=== PATIENT | male | born 1950 | race Caucasian/White ===

== ENCOUNTER 2017-08-04 23:53 | Emergency (ER) | payer OTHER ==
[~2017-08-04] VITALS: Ht 177.8 cm; Wt 88.5 kg
[2017-08-05 00:42] LABS: Basophils # (auto) 0.2 uL; Basophils % (auto) 1.1 % (0.0-2.0); Eosinophils # (auto) 0.1 uL; Eosinophils % (auto) 0.5 % (0.0-7.0); Hemoglobin 13.8 g/dL (13.5-17.5); Lymphocytes # (auto) 0.8 uL; Lymphocytes % (auto) 4.3 % (10.0-50.0); Mean Corpuscular Hgb Conc. 33.5 g/dL (32.0-36.0); Mean Corpuscular Volume 89.4 fL (80.0-100.0); Monocytes # (auto) 1.2 uL; Monocytes % (auto) 6.6 % (0.0-12.0); Neutrophils # (auto) 16.2 uL; Neutrophils % (auto) 87.5 % (37.0-80.0); Platelet Count (auto) 242 10^3/uL (140-450); Red Blood Cells 4.59 10^6/uL (4.5-5.90); Red Cell Distribution Width 13.5 % (11.8-14.3); White Blood Cell 18.5 10^3/uL (4.4-10.8)
[2017-08-05 00:45] LABS: Urine Bacteria NONE SEEN /hpf (None Seen); Urine Blood 2+ /uL (Negative); Urine Hyaline Cast FEW /lpf (0 - 2); Urine Mucus FEW (None Seen); Urine Specific Gravity 1.033 (1.001-1.035); Urine WBC 1 /hpf (0 - 3)
[2017-08-05 00:49] LABS: Alcohol, Urine < 3.0 mg/dL (0-5); Amphetamine Screen, Urine NEGATIVE (NEGATIVE); Barbiturate Scree,Urine NEGATIVE (NEGATIVE); Benzodiazephine Screen, Urine NEGATIVE (NEGATIVE); Cannabinoid Screen, Urine NEGATIVE (NEGATIVE); Cocaine Screen, Urine NEGATIVE (NEGATIVE); Opiate Scree,Urine NEGATIVE (NEGATIVE); Phencyclidine Screen, Urine NEGATIVE (NEGATIVE)
[2017-08-05 00:59] LABS: Albumin 3.5 g/dL (3.4-5.0); BUN/Creatinine Ratio 10.7; Calcium 8.2 mg/dL (8.5-10.1); Potassium 3.8 mmol/L (3.5-5.1)
[2017-08-05 01:02] LABS: Bilirubin, Total 3.1 mg/dL (0.2-1.0); Total Protein 7.3 g/dL (6.4-8.2)
[2017-08-05] MEDS ORDERED: HYDROcodone-ACET 10/325MG TAB PO ONE (02:30)
[2017-08-05] MEDS ORDERED: methylPREDNISolone SOD SUCC 125 MG/2 ML VL IV ONE (02:30)
[2017-08-05] MEDS ORDERED: diphenhdrAMINE HCL 50 MG/1 ML VL IV ONE (02:30)
[2017-08-05] MEDS ORDERED: MEPERIDINE HCL (50 MG/ML) 1 ML VIAL IV ONE (03:00)
[2017-08-05 03:57] VITALS: BP 128/79
== END 2017-08-05 04:00 | disposition home or self-care (01) ==
LOC: ER 23:53
DX: T78.40XA Allergy, unspecified, initial encounter (principal); T78.3XXA Angioneurotic edema, initial encounter; G56.93 Unspecified mononeuropathy of bilateral upper limbs
CPT/HCPCS: 36415; 72125; 80053; 80307; 81001; 83036; 85025; 96374; 96375; 99285; J1200; J2175; J2930

== ENCOUNTER 2017-12-25 18:54 | Emergency (ER) | payer OTHER ==
[~2017-12-25] VITALS: Ht 177.8 cm; Wt 86.2 kg
[2017-12-25 19:04] VITALS: BP 120/69
[2017-12-25] MEDS ORDERED: cefTRIAXone SOD 1,000 MG VL IM ONE (20:15)
[2017-12-25] MEDS ORDERED: LIDOCAINE 1%HCL (LOCAL ANESTH) 10 ML MDV ONE (20:19)
== END 2017-12-25 22:18 | disposition home or self-care (01) ==
LOC: ER 18:54
DX: H66.91 Otitis media, unspecified, right ear (principal); H60.91 Unspecified otitis externa, right ear
CPT/HCPCS: 96372; 99283; J0696; J2001

== ENCOUNTER 2018-02-16 10:16 | Emergency (ER) | payer OTHER ==
[~2018-02-16] VITALS: Ht 175.3 cm; Wt 81.6 kg
[2018-02-16 10:43] VITALS: BP 116/65
[2018-02-16] MEDS ORDERED: IBUPROFEN 800 MG TAB PO ONE (11:15)
== END 2018-02-16 11:35 | disposition home or self-care (01) ==
LOC: ER 10:19
DX: S42.012A Anterior displaced fracture of sternal end of left clavicle, initial encounter for closed fracture (principal); W19.XXXA Unspecified fall, initial encounter; Y93.23 Activity, snow (alpine) (downhill) skiing, snowboarding, sledding, tobogganing and snow tubing; Y99.8 Other external cause status; Y92.89 Other specified places as the place of occurrence of the external cause
CPT/HCPCS: 73030